=== PATIENT | female | born 1980 | race Caucasian/White ===

== ENCOUNTER 2023-06-28 21:23 | Emergency (ER) | payer MEDICAID ==
[~2023-06-28] VITALS: Ht 165.1 cm; Wt 65.8 kg
[2023-06-28] MEDS ORDERED: AMOX/CLAVULANATE 875 MG TABLET ONE (22:04)
[2023-06-28] MEDS ORDERED: TDAP [DIPH/PERTUSSIS/TET] 0.5 ML VIAL IM ONE (22:05)
[2023-06-28] MEDS: AMOX/CLAVULANATE 875 MG TABLET PO ONE (22:11)
[2023-06-28] MEDS: TDAP [DIPH/PERTUSSIS/TET] 0.5 ML VIAL IM ONE (22:11)
[2023-06-28] MEDS ORDERED: AMOX-430 PO (22:12)
[2023-06-28] MEDS ORDERED: IBUP-1955 PO (22:12)
[2023-06-28] MEDS: IBUPROFEN 600 MG TABLET PO ONE (22:14)
[2023-06-28 22:18] VITALS: BP 124/70; TEMP 98.1; O2SAT 98
== END 2023-06-28 22:18 | disposition home or self-care (01) ==
LOC: ER 21:25
DX: S61.532A Puncture wound without foreign body of left wrist, initial encounter (principal); W55.01XA Bitten by cat, initial encounter; Y93.89 Activity, other specified; Y92.89 Other specified places as the place of occurrence of the external cause; Y99.8 Other external cause status
CPT/HCPCS: 90715